=== PATIENT | female | born 1940 | race Caucasian/White ===

== ENCOUNTER 2017-03-31 07:43 | Day surgery (SDC) | payer MEDICARE ==
[~2017-03-31] VITALS: Ht 170.2 cm; Wt 78.0 kg
[~2017-03-31 07:43] MED LIST: 0.9% Sodium Chloride 1,000 ML IV SCH; CALC600T12 PO; CHOL400T PO; CLOP75TA28 PO; METO25TA6 PO; SIMV40TA5 PO; Sodium Chloride LOK Flush 10 mL Syringe IV PRN; fentaNYL-PF 50 mCg/mL 2 mL Inj IVPUSH PRN
[2017-03-31 08:00] VITALS: BP 131/65; PULSE 70; RESP 16; O2SAT 99
[2017-03-31 09:05] VITALS: BP 118/51; PULSE 69; RESP 16; O2SAT 99
--- NOTE | 2017-03-31 09:06 | PCM.ENDCOL ---
Colonoscopy Date of Service: Mar 31, 2017 Physician Tu Perera MD Pre Procedure Diagnosis: Screening blood in the stools Post Procedure Dx & Findings: Polyp hemorrhoids diverticulitis Procedure Colonoscopy PROCEDURE IN DETAIL: Prep adequate Withdrawal time 18 minutes After unremarkable rectal examination the Olympus video colonoscope was inserted patient's anal canal and was advanced to cecum. Landmarks were identified including the ileocecal valve and appendiceal orifice. Scope was withdrawn systematically. Visualized colonic mucosa showed healthy shiny mucosa with normal healthy-appearing vasculature. In the ascending colon there was a 1 mm polyp was removed completely using cold forceps. In the sigmoid colon there are several small diverticula. In the rectum retroflexion was done which showed hemorrhoids. Anal canal was inspected carefully on the way out and hemorrhoids noted. Impression Polyp 1. Complete removal Diverticula Hemorrhoids Recommendation Repeat colonoscopy 5 years Diverticular diet Presedation Assessment Risks and Benefits Informed consent was obtained from the patient after all risks and benefits including but not limited to drug reaction, infection, pain, bleeding, perforation, as well as alternatives were discussed. Patient monitoring Continuous pulse oximetry, cardiac monitoring, blood pressure monitoring, IV access, and oxygen at 2L per nasal cannula. Periprocedural Fentanyl: Fentanyl 25mcg Midazolam: Midazolam 3mg Incrementally Complications There were no periprocedural complications identified. Post Procedure Plan Post Procedure Recommendations 1. Restrict activities today. 2. Resume normal activities in the morning. 3. Resume medications. 4. Patient informed of normal post procedure side effects as bloating, drowsiness, blood streaking in the stool. 5. average risk CRCS. If colon polyps come back as: -Hyperplastic- can repeat colonoscopy in 10 years -Tubular adenoma- repeat colonoscopy in 5 years -Tubulovillous/villous adenoma- repeat colonoscopy in 3 years -If any dysplasia- return to clinic as soon as possible 6. Please don't hesitate to call me with any questions. Tu Perera MD Mar 31, 2017 09:06
[2017-03-31 09:15] VITALS: BP 101/51; PULSE 59; RESP 16; O2SAT 96
[2017-03-31 09:25] VITALS: BP 113/53; PULSE 64; RESP 16; O2SAT 96
--- NOTE | 2017-04-01 11:25 | PATH ---
SURGICAL PATHOLOGY Attending Physician:Tu Perera M.D. CASE STATUS: Signed Out PATIENT NAME: MARGOTH GARCIA PID: [id number] : 1940 DATE COLLECTED:03/31/2017 20:36 SPECIMEN: Colon, Biopsy CLINICAL HISTORY: 1). ASCENDING COLON POLYP FINAL DIAGNOSIS: 1.ASCENDING COLON POLYP: TUBULAR ADENOMA. ICD10 D12.2 GROSS DESCRIPTION: The specimen is received in one formalin filled container labeled with the patient's name, sublabeled "ascending colon polyp" and consists of a 0.3 x 0.2 x 0.2 CM portion of tissue which is entirely submitted in one cassette. 03/31/2017 DAC MICRO DESCRIPTION: See diagnosis. ICD-9 CODES: CPT CODES: 1: 76314 Electronically Signed Out Rolando Aguirre MD [facility] [address], [place] [address] Technical component performed at [facility], [address] [place] [address] Ave[address], [address]
== END 2017-03-31 23:59 | disposition home or self-care (01) ==
LOC: END 07:43
PROVIDERS: ATTEND Internal Medicine
DX: D12.2 Benign neoplasm of ascending colon (principal); K64.9 Unspecified hemorrhoids; K57.30 Diverticulosis of large intestine without perforation or abscess without bleeding; I10 Essential (primary) hypertension; I25.10 Atherosclerotic heart disease of native coronary artery without angina pectoris; Z95.5 Presence of coronary angioplasty implant and graft
CPT/HCPCS: 45380; 99153; G0500; J2250; J3010; J7030